=== PATIENT | male | born 1950 | race Caucasian/White ===

== ENCOUNTER 2021-04-02 06:08 | Inpatient (IN) ==
[2021-04-02 06:44] LABS: Basophils # (auto) 0.08 K/uL (0-0.2); Basophils % (auto) 0.9 %; Eosinophils # (auto) 0.49 K/uL (0-0.5); Eosinophils % (auto) 5.3 %; Hematocrit (blood only) 45.6 % (42-52); Hemoglobin 15.4 g/dL (14.0-18.0); Immature Granulocytes # (auto) 0.03 K/uL (0.00-0.02); Immature Granulocytes % (auto) 0.3 %; Lymphocytes # (auto) 2.05 K/uL (1.2-3.4); Lymphocytes % (auto) 22.2 %; Mean Corpuscular Hgb Conc 33.8 g/dL (32-36); Mean Corpuscular Volume 88.9 fL (80-100); Mean Platelet Volume 12.6 fL (7.4-10.4); Monocytes # (auto) 0.84 K/uL (0.11-0.59); Monocytes % (auto) 9.1 %; Neutrophils # (auto) 5.76 K/uL (1.4-6.5); Neutrophils % (auto) 62.2 %; Platelet Count 222 K/uL (130-400); RDW Coefficient of Variation 13.4 % (11.5-14.5); RDW Standard Deviation 44.2 fL (36.4-46.3); Red Blood Count 5.13 M/uL (4.7-6.1); White Blood Count 9.25 K/uL (4.8-10.8)
[2021-04-02] MEDS ORDERED: NITROGLYCERIN SL 0.4 MG/TAB TAB SL STA ×2 (06:46→07:23)
[2021-04-02] MEDS ORDERED: ASPIRIN CHEW 324 MG PO STA (06:46)
--- NOTE | 2021-04-02 06:47 | Emergency Department Note ---
History of Present Illness General Chief Complaint: Chest Pain Stated Complaint: CHEST PAIN,PAIN DOWN LEFT ARM Time Seen by Provider: 04/02/21 06:34 History of Present Illness Provider Complaint: chest pain Onset (ago): hour(s) 4 Duration: intermittent Onset: during rest Pain Location: substernal Pain Radiation: LUE Severity: moderate Maximum Pain Intensity: 8 Current Pain Intensity: 8 Quality: + aching and + sharp Relieved By: + nothing Exacerbated By: + nothing Context: no recent illness, no recent surgery, no recent immobilization, no recent travel, no trauma/injury or no new medications Associated symptoms: no nausea, no vomiting, no diaphoresis, no dyspnea, no syncope, no palpitations, no fever, no cough or no leg swelling Patient reports his pain began at 2:30 in the morning today. He reports over the last 3 days it is started at similar times overnight. Home Medications Medication Instructions Recorded Confirmed Type Cbd Oil 1 dose PO UD PRN 06/07/18 04/02/21 History Medical Marijuana 1 dose PO HS 06/07/18 04/02/21 History carvedilol 12.5 mg tablet 12.5 mg PO HS 06/07/18 04/02/21 History cholecalciferol (vitamin D3) 25 1,000 unit PO DAILY 06/07/18 04/02/21 History mcg (1,000 unit) tablet (Vitamin D3) gabapentin 400 mg capsule 200 mg PO HS 06/07/18 04/02/21 History multivitamin 1 tab PO 3XWK 06/07/18 04/02/21 History omega 9-mpo-bef-fish oil 1,000 mg 1 cap PO 3XWK 06/07/18 04/02/21 History (120 mg-180 mg) capsule (Fish Oil) turmeric root extract 500 mg 500 mg PO DAILY 06/07/18 04/02/21 History capsule ascorbic acid (vitamin C) 1,000 mg 1,000 mg PO DAILY 04/02/21 04/02/21 History tablet,extended release (Vitamin C ER) calcium gluconate 50 mg calcium 50 mg PO DAILY 04/02/21 04/02/21 History tablet ibuprofen 200 mg tablet (Advil) 200 mg PO Q6H PRN 04/02/21 04/02/21 History Allergies Allergy/AdvReac Type Severity Reaction Status Date / Time indomethacin Allergy Intermediate stomach Verified 04/02/21 07:36 pain NSAIDS (Non-Steroidal Allergy Intermediate STOMACH Verified 04/02/21 07:36 Anti-Inflamma PAINS Past Med/Surg History Medical History (Updated 04/02/21 @ 13:09 by Jaspreet Bansal) Asthma NO INHALER CAD (coronary artery disease) s/p 2 vessel CABG ~2012 Degenerative disc disease Diverticular disease Gout Hypertension Multiple sclerosis Osteoarthritis Right bundle branch block Surgical History History of appendectomy History of cardiac cath 6 YEARS AGO History of colonoscopy History of coronary artery bypass graft X 2 VESSLES 6 YEARS AGO [place] History of tonsillectomy History of tooth extraction Family History Father Coronary heart disease Brother Coronary heart disease Mother Cancer Social History Smoking Status: Current every day smoker Second Hand Exposure: No; Hx Alcohol Use: Yes Alcohol type: wine Hx Substance Use: Yes Substance Use Type Other:: MEDICAL MARIJUANA Preferred Language: Polish Communication Ability: Effective Industrial Electrician Required: No Beliefs That Will Affect Care: None Current Living Situation: Spouse Feels Safe at Home: Yes Assistive Devices: Cane and Glasses Review of Systems A total of 10 systems reviewed and were otherwise negative Physical Exam Vital Signs Vital Signs - 24 hr 04/02/21 06:15 04/02/21 06:32 04/02/21 07:16 Temperature 36.7 C Temperature Source Oral Pulse Rate 84 Pulse Rate [Left Finger] 78 Pulse Rate from SpO2 Sensor Respiratory Rate 18 20 Respiratory Depth Normal Blood Pressure 188/117 H 180/98 H Blood Pressure [Left Arm] 178/108 H Blood Pressure Mean 140 125 Blood Pressure Mean [Left Arm] 131 Blood Pressure Position [Left Arm] Lying Pulse Oximetry 98 98 Oxygen Delivery Method Room Air Room Air Sepsis Recent Fever Within 48 Hours No Sepsis New/Unexplained Change in Mental Status N/A Sepsis Action Taken by Nursing No Action Required 04/02/21 07:30 04/02/21 07:45 04/02/21 08:00 Temperature Temperature Source Pulse Rate 46 L 50 L 48 L Pulse Rate [Left Finger] Pulse Rate from SpO2 Sensor 50 L 50 L Respiratory Rate 12 15 16 Respiratory Depth Blood Pressure 112/75 Blood Pressure [Left Arm] Blood Pressure Mean 87 Blood Pressure Mean [Left Arm] Blood Pressure Position [Left Arm] Pulse Oximetry 96 96 96 Oxygen Delivery Method Sepsis Recent Fever Within 48 Hours Sepsis New/Unexplained Change in Mental Status Sepsis Action Taken by Nursing 04/02/21 08:15 Temperature Temperature Source Pulse Rate 52 L Pulse Rate [Left Finger] Pulse Rate from SpO2 Sensor 49 L Respiratory Rate 17 Respiratory Depth Blood Pressure 112/72 Blood Pressure [Left Arm] Blood Pressure Mean 85 Blood Pressure Mean [Left Arm] Blood Pressure Position [Left Arm] Pulse Oximetry 97 Oxygen Delivery Method Sepsis Recent Fever Within 48 Hours Sepsis New/Unexplained Change in Mental Status Sepsis Action Taken by Nursing Physical Exam GENERAL: He is oriented to person, place, and time. He appears well-developed and well-nourished. He does not appear distressed. HENT: Exam performed. - Head: Normocephalic and atraumatic. - Right Ear: External ear normal. No mastoid tenderness. - Left Ear: External ear normal. No mastoid tenderness. - Mouth/Throat: The oropharynx is clear and moist. No trismus in the jaw. No dental abscesses or uvula swelling. No oropharyngeal exudate or tonsillar abscesses. EYES: Conjunctivae and EOM are normal. Pupils are equal, round, and reactive to light. Right eye exhibits no discharge. Left eye exhibits no discharge. No scleral icterus. NECK: Normal range of motion. Neck supple. No JVD present. No spinous process tenderness present. No carotid bruit present. No rigidity. No tracheal deviation and normal range of motion present. No Brudzinski's sign and no Kernig's sign noted. CV: Normal rate, regular rhythm, normal heart sounds and intact distal pulses. There is no peripheral edema. Palpable radial pulses bue. PULM/CHEST: Effort normal and breath sounds normal. No respiratory distress. No stridor. He has no wheezes. He has no rales. - Chest Wall: He exhibits no tenderness. ABD: The abdomen is soft. Bowel sounds are normal. He has no distension. No mass is present. There is no tenderness. There is no rebound, no guarding, no Feliz's sign and no tenderness at McBurney's point. Rovsig negative. MUSC/SKEL: Normal range of motion. There is no peripheral edema, tenderness or deformity. LYMPH: No cervical adenopathy. NEURO: He is alert and oriented to person, place, and time. He has normal strength. No cranial nerve deficit or sensory deficit. Coordination and gait normal. GCS eye subscore is 4. GCS verbal subscore is 5. GCS motor subscore is 6. Cerebellar tests wnl. SKIN: Skin is warm and dry. He is not diaphoretic. PSYCH: He has a normal mood and affect. Behavior is normal. Judgment and thought content normal. Course Course 0634: The patient was evaluated in room C11. A complete history and physical exam was performed Cardiac monitoring: An order was placed for continuous cardiac monitoring. The monitor shows a rate of 80 with sinus rhythm 0735: Vital signs stable. Patient reports his chest pain improved from a 8 out of 10 to a 6 out of 10 sublingual nitro. Patient will be given repeat sublingual nitro. Labs show an elevated troponin of 3.45. I did discuss the patient's EKG, HPI, physical exam findings, and elevated troponin with Dr. El interventional cardiology to discuss if he wants to activate the Large Sheetfed Press Operator. He recommends not activating the Large Sheetfed Press Operator at this time and to treat the patient as an NSTEMI. Patient will be started on heparin and nitro drip and [facility]. [facility] to admit to Dr. Arguello Administered Medications Acetaminophen (Acetaminophen 325 Mg Tab) 650 mg PO Q4H PRN PRN Reason: Pain or Fever Stop: 05/02/21 08:29 Last Admin: 04/02/21 11:03 Dose: 650 mg Documented by: [id number] Heparin Sodium/Dextrose (Heparin Sodium/Dextrose) 25,000 units in 500 mls @ 16 mls/hr IV .Q24H [facility]; Protocol Stop: 05/02/21 07:44 Last Admin: 04/02/21 08:05 Dose: 800 units/hr, 16 mls/hr Documented by: [id number] Cosigned by: [id number] Sodium Chloride (Nss 1000ml) 1,000 mls @ 125 mls/hr IV .Q8H [facility] Stop: 05/02/21 07:29 Last Admin: 04/02/21 08:03 Dose: 125 mls/hr Documented by: [id number] Nitroglycerin/Dextrose (Nitroglycerin/D5w 100 Mcg/Ml) 250 mls @ 6 mls/hr IV .Q24H [facility]; Protocol Stop: 05/02/21 07:29 Last Admin: 04/02/21 11:01 Dose: 10 mcg/min, 6 mls/hr Documented by: [id number] Cosigned by: [id number] Morphine Sulfate (Morphine Sulfate 2 Mg/Ml [place]) 2 mg IV Q4H PRN PRN Reason: Pain Stop: 04/16/21 10:38 Last Admin: 04/02/21 11:03 Dose: 2 mg Documented by: [id number] Discontinued Medications Aspirin (Aspirin Chew 324 Mg) 324 mg PO NOW STA Stop: 04/02/21 06:47 Last Admin: 04/02/21 07:14 Dose: 324 mg Documented by: [id number] Heparin Sodium (Porcine) (Heparin Sod (Porcine) 1000 Unit/Ml) 4,000 units IV NOW ONE Stop: 04/02/21 07:46 Last Admin: 04/02/21 08:04 Dose: 4,000 units Documented by: [id number] Cosigned by: [id number] Nitroglycerin/Dextrose (Nitroglycerin/D5w 100 Mcg/Ml) 250 mls @ 3 mls/hr IV .Q24H [facility]; Protocol Stop: 05/02/21 07:29 Last Titration: 04/02/21 12:50 Dose: 0 mcg/min, 0 mls/hr Documented by: [id number] Admin: 04/02/21 08:05 Dose: 5 mcg/min, 3 mls/hr Documented by: [id number] Cosigned by: [id number] Miscellaneous (Stat Iv Infusion Titration Per Protocol) 1 ea N/A NOW STA Stop: 04/02/21 07:28 Last Admin: 04/02/21 12:41 Dose: Not Given Documented by: [id number] Nitroglycerin (Nitroglycerin Sl 0.4 Mg/Tab Tab) 0.4 mg SL NOW STA Stop: 04/02/21 06:47 Last Admin: 04/02/21 07:14 Dose: 0.4 mg Documented by: [id number] Nitroglycerin (Nitroglycerin Sl 0.4 Mg/Tab Tab) 0.4 mg SL NOW STA Stop: 04/02/21 07:24 Last Admin: 04/02/21 07:39 Dose: 0.4 mg Documented by: [id number] Medical Decision Making Laboratory Data Result diagrams: 04/02/21 06:34 04/02/21 06:34 Labs: Lab Results 04/02/21 04/02/21 04/02/21 Range/Units 06:34 06:34 07:45 WBC 9.25 (4.8-10.8) K/uL RBC 5.13 (4.7-6.1) M/uL Hgb 15.4 (14.0-18.0) g/dL Hct 45.6 (42-52) % MCV 88.9 (80-100) fL MCH 30.0 (25-34) pg MCHC 33.8 (32-36) g/dL RDW Std Deviation 44.2 (36.4-46.3) fL RDW Coeff of Alex 13.4 (11.5-14.5) % Plt Count 222 (130-400) K/uL MPV 12.6 H (7.4-10.4) fL Immature Gran % (Auto) 0.3 % Neut % (Auto) 62.2 % Lymph % (Auto) 22.2 % [place] % (Auto) 9.1 % Eos % (Auto) 5.3 % Baso % (Auto) 0.9 % Neut # (Auto) 5.76 (1.4-6.5) K/uL Lymph # (Auto) 2.05 (1.2-3.4) K/uL [place] # (Auto) 0.84 H (0.11-0.59) K/uL Eos # (Auto) 0.49 (0-0.5) K/uL Baso # (Auto) 0.08 (0-0.2) K/uL Immature Gran # (Auto) 0.03 H (0.00-0.02) K/uL Sodium 140 (136-145) mmol/L Potassium 4.1 (3.5-5.1) mmol/L Chloride 110 H (98-107) mmol/L Carbon Dioxide 29 (21-32) mmol/L Anion Gap 1.0 L (3-11) BUN 15 (7-18) mg/dl Creatinine 1.14 (0.6-1.4) mg/dl Est Cr Clr Drug Dosing 56.9 ml/min Est GFR ( Amer) 75.1 ml/min Est GFR (Non-Af Amer) 64.8 ml/min BUN/Creatinine Ratio 12.8 (10-20) Glucose 133 H (70-99) mg/dl Calcium 9.1 (8.5-10.1) mg/dl Total Bilirubin 0.6 (0.2-1) mg/dl AST 51 H (15-37) U/L ALT 27 (12-78) Alkaline Phosphatase 59 (45-117) U/L Troponin I 3.450 H* (0-0.045) ng/ml Total Protein 7.2 (6.4-8.2) gm/dl Albumin 3.8 (3.4-5.0) gm/dl Globulin 3.4 (2.5-4.0) gm/dl Albumin/Globulin Ratio 1.1 (0.9-2) Lipase 346 (73-393) U/L SARS-CoV-2, RNA, NAAT NEGATIVE (NEGATIVE) Imaging Data Chest x-ray: Radiologist's impression: Chest X-Ray 04/02/21 06:17 XR chest 1V portable HISTORY: 71 years-old Male Chest Pain acute atypical chest pain COMPARISON: Chest radiograph 01/22/2012 TECHNIQUE: Portable AP view of the chest FINDINGS: Cardiomediastinal and hilar silhouettes are within normal limits. Prior median sternotomy and probable CABG. No pneumothorax, pleural effusion, airspace consolidation or overt pulmonary edema. Subcentimeter ovoid nodular retrocardiac density may reflect a calcified granuloma. Degenerative changes of the shoulders and spine. IMPRESSION: No acute process. ACT 112: Negative or not required by law. The above report was generated using voice recognition software. It may contain grammatical, syntax or spelling errors. Electronically signed by: Zion Chavez M.D. 04/02/2021 7:22 AM ECG Data Indication: chest pain Rate (beats per minute): 79 Rhythm: normal sinus Findings: + LAFB, + RBBB and + ST depression (V3 V4 V5); no ST elevation or no prolonged QT Additional Comments: ST depressions in V3 V4 and V5 are new. MDM Narrative Vital signs stable. Patient reports his chest pain improved from a 8 out of 10 to a 6 out of 1:10 sublingual nitro. Patient will be given repeat sublingual nitro. Labs show an elevated troponin of 3.45. I did discuss the patient's EKG, HPI, physical exam findings, and elevated troponin with Dr. El interventional cardiology to discuss if he wants to activate the Large Sheetfed Press Operator. He recommends not activating the Large Sheetfed Press Operator at this time and to treat the patient as an NSTEMI. Patient will be started on heparin and nitro drip and [facility]. [facility] stated to admit to Dr. Arguello Impression & Plan NSTEMI (non-ST elevated myocardial infarction) Critical Care Time Critical Care Time: Yes Total Critical Care Time: 60 I have personally spent greater than 60 minutes of critical care time in the direct management of this patient. This includes bedside care, interpretation of diagnostic studies, and testing, discussion with consultants, patient, and family members, and other required patient management activities. This 60 min utes is in excess of all separately billable procedures. Discharge Plan Visit Data Chief Complaint: Chest Pain Stated Complaint: CHEST PAIN,PAIN DOWN LEFT ARM ED Provider: Jaspreet Bansal Discharge Problem: NSTEMI (non-ST elevated myocardial infarction) Patient Disposition: Admitted As Inpatient
[2021-04-02 07:01] LABS: Albumin Level 3.8 gm/dl (3.4-5.0); BUN Creatinine Ratio 12.8 (10-20); Calcium 9.1 mg/dl (8.5-10.1); Creatinine Clr Calc Pharmacy 56.9 ml/min; Est GFR (African American) 75.1 ml/min; Est GFR (Non-African American) 64.8 ml/min; Potassium 4.1 mmol/L (3.5-5.1)
[2021-04-02 07:09] LABS: Albumin Globulin Ratio 1.1 (0.9-2); Bilirubin,Total 0.6 mg/dl (0.2-1); Globulin 3.4 gm/dl (2.5-4.0); Total Protein 7.2 gm/dl (6.4-8.2); Troponin I 3.45 ng/ml (0-0.045)
--- NOTE | 2021-04-02 07:23 | XRay Report ---
XR chest 1V portable HISTORY: 71 years-old Male Chest Pain acute atypical chest pain COMPARISON: Chest radiograph 01/22/2012 TECHNIQUE: Portable AP view of the chest FINDINGS: Cardiomediastinal and hilar silhouettes are within normal limits. Prior median sternotomy and probabl e CABG. No pneumothorax, pleural effusion, airspace consolidation or overt pulmonary edema. Subcentim eter ovoid nodular retrocardiac density may reflect a calcified granuloma. Degenerative changes of th e shoulders and spine. IMPRESSION: No acute process. ACT 112: Negative or not required by law. The above report was generated using voice recognition software. It may contain grammatical, syntax o r spelling errors. Electronically signed by: Zion Chavez M.D. 04/02/2021 7:22 AM
[2021-04-02] MEDS ORDERED: STAT IV Infusion **Titration per Protocol STA (07:27)
[2021-04-02] MEDS ORDERED: Heparin IV Adult Wt-Based Low-Dose WITH Bolus Protocol STA (07:27)
[2021-04-02] MEDS ORDERED: NITROGLYCERIN/D5W 100MCG/ML 250 ML IV SCH ×2 (07:30→10:28)
[2021-04-02] MEDS ORDERED: HEPARIN SOD (PORCINE) 1000 UNIT/ML IV ONE ×2 (07:42→07:45)
[2021-04-02] MEDS ORDERED: HEPARIN SODIUM/DEXTROSE 25,000 UNITS/500 ML BAG IV SCH (07:45)
[2021-04-02] MEDS: SODIUM CHLORIDE 0.9% 1000ML 1,000 ML IV SCH ×2 (08:03→17:29)
[2021-04-02] MEDS ORDERED: ACETAMINOPHEN 325 MG TAB PO PRN (08:30)
--- NOTE | 2021-04-02 08:34 | History & Physical Report ---
Date of Service April 02, 2021 Assessment & Plan (1) NSTEMI (non-ST elevated myocardial infarction): Plan: Patient presents with left-sided chest pain, radiation to left arm Troponin 3.45 ST depressions in V3 V4 V5 In ED given aspirin 324 mg, sublingual nitro x2 with some improvement in chest pain started on IV heparin and IV nitro drip ED provider discussed with Dr. El, recommended medical management History of CAD, status post CABG History of chronic ischemic heart disease and hyperlipidemia, not tolerant to statin History of right bundle branch block At home usually takes Coreg For now we will continue IV heparin, and IV nitro drip Admit to PCU for close hemodynamic monitoring Trend troponin Obtain echocardiogram and discuss further with cardiology History of MS, polyneuropathy -Patient on medical marijuana, gabapentin -Resume home medications as appropriate DVT prophylaxis: Currently on IV heparin Code status: Full History of Present Illness Chief Complaint: Chest pain Primary Care Provider: Bryn Recinos, 71-year-old male, with history of CAD status post CABG, chronic ischemic heart disease, right bundle branch block, hyperlipidemia (not tolerant to statins), MS, polyneuropathy, and osteoarthritis, who presents with chest pain. Patient reports having chest pain in the middle of the night, for past 3 days. He usually wakes up around 2 or 3 AM, with left-sided chest pain that radiates to both of his arms left more than right. He reports pain to be sometimes as pressure sometimes sharp. Reports that it usually lasts quite a long time, even about 2 hours before it gets better. He also says he is able to do simple stretching exercises and at that time he is not really bothered by chest pain. He takes stairs but very slowly due to his MS. And so he does not notice much chest pain with activity. He does notice it more when he lays down. This morning pain was bothering him more than usual and therefore he decided to be evaluated in emergency room. He does not recall being short of breath, or diaphoretic, however he noticed pain to radiate to his arms and jaw, mostly left arm. He also reported headache and eye pain associated with chest pain. In the ED, troponin was found to be elevated at 3.45, and EKG significant with ST depressions in V3, V4, V5. Patient received aspirin 324 mg in the ED, as well as sublingual nitro, which helped with chest pain. ED provider contacted Dr. El, cardiology, who recommended to treat as an NSTEMI. Patient started on IV heparin and IV nitro. Allergies Allergy/AdvReac Type Severity Reaction Status Date / Time indomethacin Allergy Intermediate stomach Verified 04/02/21 07:36 pain NSAIDS (Non-Steroidal Allergy Intermediate STOMACH Verified 04/02/21 07:36 Anti-Inflamma PAINS Home Medications Medication Instructions Recorded Confirmed Type Cbd Oil 1 dose PO UD PRN 06/07/18 04/02/21 History Medical Marijuana 1 dose PO HS 06/07/18 04/02/21 History carvedilol 12.5 mg tablet 12.5 mg PO HS 06/07/18 04/02/21 History cholecalciferol (vitamin D3) 25 1,000 unit PO DAILY 06/07/18 04/02/21 History mcg (1,000 unit) tablet (Vitamin D3) gabapentin 400 mg capsule 200 mg PO HS 06/07/18 04/02/21 History multivitamin 1 tab PO 3XWK 06/07/18 04/02/21 History omega 6-nlt-hfr-fish oil 1,000 mg 1 cap PO 3XWK 06/07/18 04/02/21 History (120 mg-180 mg) capsule (Fish Oil) turmeric root extract 500 mg 500 mg PO DAILY 06/07/18 04/02/21 History capsule ascorbic acid (vitamin C) 1,000 mg 1,000 mg PO DAILY 04/02/21 04/02/21 History tablet,extended release (Vitamin C ER) calcium gluconate 50 mg calcium 50 mg PO DAILY 04/02/21 04/02/21 History tablet ibuprofen 200 mg tablet (Advil) 200 mg PO Q6H PRN 04/02/21 04/02/21 History Past Med/Surg History Medical History (Updated 04/02/21 @ 10:20 by Chris Raymond MD) Asthma NO INHALER CAD (coronary artery disease) s/p 2 vessel CABG ~2012 Degenerative disc disease Diverticular disease Gout Hypertension Multiple sclerosis Osteoarthritis Right bundle branch block Surgical History History of appendectomy History of cardiac cath 6 YEARS AGO History of colonoscopy History of coronary artery bypass graft X 2 VESSLES 6 YEARS AGO [place] History of tonsillectomy History of tooth extraction Family History (Updated 04/02/21 @ 08:43 by Chris Raymond MD) Father Coronary heart disease Brother Coronary heart disease Mother Cancer Social History Smoking Status: Current every day smoker Second Hand Exposure: No; Hx Alcohol Use: Yes Alcohol type: wine Hx Substance Use: Yes Substance Use Type Other:: MEDICAL MARIJUANA Preferred Language: German Communication Ability: Effective Senior Net Application Developer Required: No Beliefs That Will Affect Care: None Current Living Situation: Spouse Feels Safe at Home: Yes Assistive Devices: Cane and Glasses Review of Systems Constitutional: no fever and no chills Eyes: no problem reported Ear, Nose, Mouth, Throat: no problem reported Respiratory: no cough, no dyspnea and no problem reported Cardiovascular: + chest pain and + radiating jaw, neck or arm pain Gastrointestinal: no abdominal pain, no nausea and no problem reported Genitourinary: no problem reported Musculoskeletal: no problem reported (hx of MS, no new problems reported) Integumentary: no problem reported Neurologic: no problem reported Psychiatric: no problem reported Endocrine: no problem reported Hematologic / Lymphatic: no problem reported Allergy / Immunological: no problem reported Physical Exam Constitutional: WD/WN, vitals as above Eyes: PERRL, conjunctivae normal, anicteric sclerae ENMT: external ear and nose normal, oropharynx normal Neck: trachea midline, no thyromegaly Respiratory: normal respiratory effort, lungs clear to auscultation (no wheezing, rhonchi, crackles) Cardiovascular: RRR, no murmur, no edema Chest (Breasts): Chest: normal inspection of chest Gastrointestinal (Abdomen): normal bowel sounds, soft, nontender, no hepatosplenomegaly Musculoskeletal: Head/Neck/Chest: normocephalic, head atraumatic and neck supple Extremities: + abnormal strength (pt moves extremities, has brace on RLE (chronic d/t MS)) Skin: no rashes, warm and dry Neurologic: awake (Alert oriented answering questions appropriately,no facial asymmetry) Psychiatric: A+Ox3, euthymic affect Genitourinary: no CVA tenderness Lymphatic: no lymphedema Results & Data Results & Data ([facility]) Vital Signs (Past 12 Hours) Vital Signs Temp Pulse Pulse Resp BP BP Pulse Ox 04/02/21 08:00 48 L 16 96 04/02/21 07:45 50 L 15 96 04/02/21 07:30 46 L 12 112/75 96 04/02/21 07:16 180/98 H 04/02/21 06:32 78 20 178/108 H 98 04/02/21 06:15 36.7 C 84 18 188/117 H 98 Laboratory Results 04/02/21 04/02/21 04/02/21 Range/Units 07:45 06:34 06:34 WBC 9.25 (4.8-10.8) K/uL RBC 5.13 (4.7-6.1) M/uL Hgb 15.4 (14.0-18.0) g/dL Hct 45.6 (42-52) % MCV 88.9 (80-100) fL MCH 30.0 (25-34) pg MCHC 33.8 (32-36) g/dL RDW Std Deviation 44.2 (36.4-46.3) fL RDW Coeff of Alex 13.4 (11.5-14.5) % Plt Count 222 (130-400) K/uL MPV 12.6 H (7.4-10.4) fL Immature Gran % (Auto) 0.3 % Neut % (Auto) 62.2 % Lymph % (Auto) 22.2 % [place] % (Auto) 9.1 % Eos % (Auto) 5.3 % Baso % (Auto) 0.9 % Neut # (Auto) 5.76 (1.4-6.5) K/uL Lymph # (Auto) 2.05 (1.2-3.4) K/uL [place] # (Auto) 0.84 H (0.11-0.59) K/uL Eos # (Auto) 0.49 (0-0.5) K/uL Baso # (Auto) 0.08 (0-0.2) K/uL Immature Gran # (Auto) 0.03 H (0.00-0.02) K/uL Sodium 140 (136-145) mmol/L Potassium 4.1 (3.5-5.1) mmol/L Chloride 110 H (98-107) mmol/L Carbon Dioxide 29 (21-32) mmol/L Anion Gap 1.0 L (3-11) BUN 15 (7-18) mg/dl Creatinine 1.14 (0.6-1.4) mg/dl Est Cr Clr Drug Dosing 56.9 ml/min Est GFR ( Amer) 75.1 ml/min Est GFR (Non-Af Amer) 64.8 ml/min BUN/Creatinine Ratio 12.8 (10-20) Glucose 133 H (70-99) mg/dl Calcium 9.1 (8.5-10.1) mg/dl Total Bilirubin 0.6 (0.2-1) mg/dl AST 51 H (15-37) U/L ALT 27 (12-78) Alkaline Phosphatase 59 (45-117) U/L Troponin I 3.450 H* (0-0.045) ng/ml Total Protein 7.2 (6.4-8.2) gm/dl Albumin 3.8 (3.4-5.0) gm/dl Globulin 3.4 (2.5-4.0) gm/dl Albumin/Globulin Ratio 1.1 (0.9-2) Lipase 346 (73-393) U/L SARS-CoV-2, RNA, NAAT NEGATIVE (NEGATIVE) Code Status & VTE Plan VTE Prophylaxis Plan VTE Prophylaxis will be ordered: Yes
[2021-04-02] MEDS ORDERED: MoRPHine SULFATE 2 MG/ML CARP IV PRN (10:39)
--- NOTE | 2021-04-02 11:14 | Cardiology Consultation ---
Date of Consultation April 02, 2021 Assessment & Plan (1) Multiple sclerosis: (2) Hx of CABG: (3) NSTEMI (non-ST elevated myocardial infarction): As previously mentioned, the patient has not been very compliant with medical follow-up or medications. Upon presentation, he was off of all his cardiac meds. His chest discomfort does not sound completely new. He has had previous atypical sharp chest pain in the past which seems to have gotten worse here over the past few days. It is also atypical and is that is not related to activity. It seems to wake him from sleep when he is lying flat. Not associated with shortness of breath. I would continue to monitor him. Continue to obtain a series of cardiac markers. He had an ultrasound completed which I will review. Currently I would continue the IV nitroglycerin and heparin. He may need additional analgesia such as Tylenol or as needed morphine. If he has not been started on a PPI, then I will start 1. History of Present Illness History of Present Illness This is a 71-year-old male patient who has not been very compliant with follow- up visits for medications. He was last seen in our practice in 2019 for preoperative clearance regarding inguinal hernia repair. Prior to that he had not been seen since 2015. During his 2019 preoperative evaluation he described atypical sharp chest pain. Therefore, he underwent a dobutamine stress echocard iogram that was negative. He has an intolerance to statin medications as well as aspirin. During his last visit in 2019 it is mentioned that he was not on any of his medications. He does have a history of coronary artery disease and in 2012 underwent single-vessel coronary artery bypass at [facility]. It is uncertain as to whether he received an arterial or vein graft. The patient also has a history of multiple sclerosis for which he uses medical marijuana. The patient was in his usual state of health until approximately 3 days ago. As mentioned above he has a history of atypical chest pain which he began to have a little more frequent. Typically his chest pain occurs at night when he lays flat. It can also occur but to less extent during the day while he is exercising. Its not associated with shortness of breath or dyspnea on exertion. Is not increased with deep breathing. Over the past 3 days he describes it as being severe especially at night where it wakes him from sleep. He decided to come to the emergency department and after admission here he is noted to have an abnormal EKG with a right bundle branch block which is unchanged from prior studies. He also had an elevation in his cardiac markers specifically his troponin was 3.4. He is currently on a heparin and nitroglycerin drip. He describes some mild chest discomfort. He appears to be in no acute distress. Allergies Allergy/AdvReac Type Severity Reaction Status Date / Time indomethacin Allergy Intermediate stomach Verified 04/02/21 07:36 pain NSAIDS (Non-Steroidal Allergy Intermediate STOMACH Verified 04/02/21 07:36 Anti-Inflamma PAINS Home Medications Medication Instructions Recorded Confirmed Type Cbd Oil 1 dose PO UD PRN 06/07/18 04/02/21 History Medical Marijuana 1 dose PO HS 06/07/18 04/02/21 History carvedilol 12.5 mg tablet 12.5 mg PO HS 06/07/18 04/02/21 History cholecalciferol (vitamin D3) 25 1,000 unit PO DAILY 06/07/18 04/02/21 History mcg (1,000 unit) tablet (Vitamin D3) gabapentin 400 mg capsule 200 mg PO HS 06/07/18 04/02/21 History multivitamin 1 tab PO 3XWK 06/07/18 04/02/21 History omega 6-kxr-ass-fish oil 1,000 mg 1 cap PO 3XWK 06/07/18 04/02/21 History (120 mg-180 mg) capsule (Fish Oil) turmeric root extract 500 mg 500 mg PO DAILY 06/07/18 04/02/21 History capsule ascorbic acid (vitamin C) 1,000 mg 1,000 mg PO DAILY 04/02/21 04/02/21 History tablet,extended release (Vitamin C ER) calcium gluconate 50 mg calcium 50 mg PO DAILY 04/02/21 04/02/21 History tablet ibuprofen 200 mg tablet (Advil) 200 mg PO Q6H PRN 04/02/21 04/02/21 History aspirin 81 mg tablet,delayed 81 mg PO QAM #30 tab 04/03/21 Rx release clopidogrel 75 mg tablet 75 mg PO QAM #30 tab 04/03/21 Rx Patient History Medical History (Updated 04/02/21 @ 13:09 by Jaspreet Bansal) Asthma NO INHALER CAD (coronary artery disease) s/p 2 vessel CABG ~2012 Degenerative disc disease Diverticular disease Gout Hypertension Multiple sclerosis Osteoarthritis Right bundle branch block Surgical History History of appendectomy History of cardiac cath 6 YEARS AGO History of colonoscopy History of coronary artery bypass [facility] of tonsillectomy History of tooth extraction Family History Father Coronary heart disease Brother Coronary heart disease Mother Cancer Social History Smoking Status: Current every day smoker Second Hand Exposure: Yes; Do You Dip or Chew Tobacco: No; Tobacco Cessation Education Requested by Patient: No Hx Alcohol Use: No Hx Substance Use: Yes Last Used Substance: Days (ago) Last Used Substance Other:: yesterday, uses tincture and vaping Substance Use Type Other:: MEDICAL MARIJUANA Preferred Language: Nepali Communication Ability: Effective Gang 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 All other 10 point review of systems are negative. Physical Exam Physical Exam: General: no acute distress and stated age Head: normocephalic, no masses, lesions, tenderness or abnormalities Eyes: conjunctiva are pink and non-injected, sclera clear Neck: supple, no adenopathy, no bruits, normal jugular venous pulse, no hepatojugular reflux Chest: normal shape and normal respiratory effort Lungs: clear to auscultation and percussion Cardiac Exam: - regular rate & rhythm, no murmurs gallops or rubs - normal S1, normal S2 Pulses: 2(+) throughout Abdomen: abdomen soft, non-tender, no abnormal masses and no hepatosplenomegaly Musculoskeletal: no gait disturbance, no joint inflammation, no deforming arthritis Extremities: no edema and no cyanosis Neuro: grossly normal exam Results & Data ([facility]) Vital Signs (Past 12 Hours) Vital Signs Temp Pulse Pulse Resp BP BP Pulse Ox 04/02/21 09:15 59 L 14 128/68 97 04/02/21 09:00 53 L 16 108/72 96 04/02/21 08:45 48 L 14 111/67 97 04/02/21 08:30 47 L 21 123/74 97 04/02/21 08:15 52 L 17 112/72 97 04/02/21 08:00 48 L 16 96 04/02/21 07:45 50 L 15 96 04/02/21 07:30 46 L 12 112/75 96 04/02/21 07:16 180/98 H 04/02/21 06:32 78 20 178/108 H 98 04/02/21 06:15 36.7 C 84 18 188/117 H 98 Laboratory Results Laboratory Results - last 24 hr 04/02/21 04/02/21 04/02/21 06:34 06:34 07:45 WBC 9.25 RBC 5.13 Hgb 15.4 Hct 45.6 MCV 88.9 MCH 30.0 MCHC 33.8 RDW Std Deviation 44.2 RDW Coeff of Alex 13.4 Plt Count 222 MPV 12.6 H Immature Gran % (Auto) 0.3 Neut % (Auto) 62.2 Lymph % (Auto) 22.2 [place] % (Auto) 9.1 Eos % (Auto) 5.3 Baso % (Auto) 0.9 Neut # (Auto) 5.76 Lymph # (Auto) 2.05 [place] # (Auto) 0.84 H Eos # (Auto) 0.49 Baso # (Auto) 0.08 Immature Gran # (Auto) 0.03 H Sodium 140 Potassium 4.1 Chloride 110 H Carbon Dioxide 29 Anion Gap 1.0 L BUN 15 Creatinine 1.14 Est Cr Clr Drug Dosing 56.9 Est GFR ( Amer) 75.1 Est GFR (Non-Af Amer) 64.8 BUN/Creatinine Ratio 12.8 Glucose 133 H Calcium 9.1 Total Bilirubin 0.6 AST 51 H ALT 27 Alkaline Phosphatase 59 Troponin I 3.450 H* Total Protein 7.2 Albumin 3.8 Globulin 3.4 Albumin/Globulin Ratio 1.1 Lipase 346 SARS-CoV-2, RNA, NAAT NEGATIVE Medications Administered Current Inpatient Medications Acetaminophen (Acetaminophen 325 Mg Tab) 650 mg PO Q4H PRN PRN Reason: Pain or Fever Stop: 05/02/21 08:29 Last Admin: 04/02/21 11:03 Dose: 650 mg Documented by: Heparin Sodium/Dextrose (Heparin Sodium/Dextrose) 25,000 units in 500 mls @ 16 mls/hr IV .Q24H [facility]; Protocol Stop: 05/02/21 07:44 Last Admin: 04/02/21 08:05 Dose: 800 units/hr, 16 mls/hr Documented by: Sodium Chloride (Nss 1000ml) 1,000 mls @ 125 mls/hr IV .Q8H [facility] Stop: 05/02/21 07:29 Last Admin: 04/02/21 08:03 Dose: 125 mls/hr Documented by: Nitroglycerin/Dextrose (Nitroglycerin/D5w 100 Mcg/Ml) 250 mls @ 6 mls/hr IV .Q24H [facility]; Protocol Stop: 05/02/21 07:29 Last Admin: 04/02/21 11:01 Dose: 10 mcg/min, 6 mls/hr Documented by: Morphine Sulfate (Morphine Sulfate 2 Mg/Ml Carp) 2 mg IV Q4H PRN PRN Reason: Pain Stop: 04/16/21 10:38 Last Admin: 04/02/21 11:03 Dose: 2 mg Documented by:
[2021-04-02] MEDS ORDERED: PANTOprazole 40 MG TAB PO STA (12:00)
[2021-04-02] MEDS ORDERED: FAMOTIDINE 20MG/5ML IV PUSH IV STA (12:06)
[2021-04-02] MEDS ORDERED: oxyCODONE HCL IR 5 MG TAB (IMMEDIATE RELEASE) PO PRN (12:09)
[2021-04-02] MEDS ORDERED: FAMOTIDINE 20 MG in SYRINGE 3 ML IV ONE (13:30)
[2021-04-02 14:32] LABS: Partial Thromboplastin Ratio 1.8
[2021-04-02 14:33] LABS: Partial Thromboplastin Time 47.8 Seconds (21.0-31.0)
[2021-04-02] MEDS ORDERED: fentaNYL citrate 100 MCG/2 ML VIAL ONE (15:00)
[2021-04-02] MEDS ORDERED: HEPARIN (PORCINE) 1000 UNIT/ML 10 ML (CATH LAB USE ONLY) ONE (15:00)
[2021-04-02] MEDS ORDERED: niCARdipine HCL INJ 2.5 MG/ML 10 ML AMP ONE (15:00)
[2021-04-02] MEDS ORDERED: MIDAZOLAM HCL 1 MG/ML 2ML VIAL ONE (15:00)
[2021-04-02] MEDS ORDERED: NITROGLYCERIN/D5W 100MCG/ML 20ML SYR ONE (15:01)
--- NOTE | 2021-04-02 15:34 | Pre Anesthesia Assessment ---
Date of Service April 02, 2021 Pre Sedation Assessment Vital Signs Temp Pulse Pulse Pulse Resp BP BP 04/02/21 14:31 97.9 F 66 17 04/02/21 11:43 98.1 F 72 18 04/02/21 09:15 59 L 14 128/68 04/02/21 09:00 53 L 16 108/72 04/02/21 08:45 48 L 14 111/67 04/02/21 08:30 47 L 21 123/74 04/02/21 08:15 52 L 17 112/72 04/02/21 08:00 48 L 16 04/02/21 07:45 50 L 15 04/02/21 07:30 46 L 12 112/75 04/02/21 07:16 180/98 H 04/02/21 06:32 78 20 178/108 H 04/02/21 06:15 98.1 F 84 18 188/117 H BP Pulse Ox 04/02/21 14:31 111/67 95 04/02/21 11:43 128/72 04/02/21 09:15 97 04/02/21 09:00 96 04/02/21 08:45 97 04/02/21 08:30 97 04/02/21 08:15 97 04/02/21 08:00 96 04/02/21 07:45 96 04/02/21 07:30 96 04/02/21 07:16 04/02/21 06:32 98 04/02/21 06:15 98 Cardiovascular RRR, no murmur, no edema Respiratory normal respiratory effort, lungs clear to auscultation Pre-Sedation Airway Assessment Smoking Status: Current every day smoker Hx Sleep Apnea: No Hx Difficult Intubation: No Short, Thick Neck: No Thyromental Distance: > or= 3.5 Finger Breadths Oral Cavity: + WNL Mallampati Class: III ASA: ASA3 Procedure Planning Contraindications for Sedation: none Current Medications Reviewed: Yes Notes The planned sedation has been discussed with the patient. Informed Consent was obtained. I have identified the patient, determined the appropriateness of sedation and have assessed the patient immediately prior to the procedure. All medicine(s) and interventions are by my order.
[2021-04-02] MEDS ORDERED: ATROPINE SULFATE 0.1 MG/ML 10ML SYR IV ONE (16:11)
[2021-04-02] MEDS ORDERED: CLOPIDOGREL BISULFATE 300 MG TAB ONE (16:38)
--- NOTE | 2021-04-02 16:52 | Post Anesthesia Assessment ---
Date of Service April 02, 2021 Post Sedation Assessment Vital Signs Temp Pulse Pulse Pulse Resp BP BP 04/02/21 14:31 97.9 F 66 17 04/02/21 11:43 98.1 F 72 18 04/02/21 09:15 59 L 14 128/68 04/02/21 09:00 53 L 16 108/72 04/02/21 08:45 48 L 14 111/67 04/02/21 08:30 47 L 21 123/74 04/02/21 08:15 52 L 17 112/72 04/02/21 08:00 48 L 16 04/02/21 07:45 50 L 15 04/02/21 07:30 46 L 12 112/75 04/02/21 07:16 180/98 H 04/02/21 06:32 78 20 178/108 H 04/02/21 06:15 98.1 F 84 18 188/117 H BP Pulse Ox 04/02/21 14:31 111/67 95 04/02/21 11:43 128/72 04/02/21 09:15 97 04/02/21 09:00 96 04/02/21 08:45 97 04/02/21 08:30 97 04/02/21 08:15 97 04/02/21 08:00 96 04/02/21 07:45 96 04/02/21 07:30 96 04/02/21 07:16 04/02/21 06:32 98 04/02/21 06:15 98 Recovery Score Activity: Moves 4 extremities Respiration: Deep Breath/Cough Circulation: +/-20% PreAnes Value Consciousness: Fully Awake Oxygen Saturation: O2 needed for >90% Discharge Sedation Level of Care: Fast Track Phase II Post Sedation Plan On clinical assessment, the patient appears to have tolerated the sedation without complications. Patient is recovering as anticipated. Patient will continue to be monitored by nursing and may be discharged when sedation discharge criteria are met per below protocol. Upon Completions of procedure up to 15 minutes continue every 5 minute vital signs and the P.A.R. score; then discharge to a Phase I or Fast Track to Phase II per the following guidelines: * Discharge Patient to appropriate Phase II area if PAR is 8 or greater or return to pre- procedure baseline. The post - procedure orders will be as directed. * If PAR score is less than 8 or not return to pre-procedure baseline then patient will follow Phase I monitoring till PAR is reached for Phase II. The Phase I may be done in procedure room or may call to secure a Phase I area. * If naloxone or flumazenil are used for reversal, hold in Phase I for continued monitoring from when last reversal dose was given for a minimum of 60 minutes or longer pending the nurse and/or physician discretion of patient condition before discharge to Phase II. Please call the Sedation Physician to re-evaluate and complete post-note for discharge to Phase II area. Do NOT discharge from procedure sedation or Phase 1 until post- sedation evaluation note is complete by procedure /sedation MD Sedation Discharge Instructions to be given to the patient at discharge to home.
--- NOTE | 2021-04-02 16:54 | Cardiac Catheterization ---
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 Status Clinical evaluation leading to the procedure CAD Presenation: Non STEMI Anginal Classification: CCS IV Heart Failure: No Cardiogenic Shock within 24 Hours: No Cardiac Arrest within 24 Hours: No Imaging Studies Past 6 Months: Yes Stress Studies Past 6 Months: No Diagnostic Physicians Name: Obed El MD Status: Urgent Closure Device Percutaneous Entry Location: Radial Closure Device: Radial Band Recommendations: PCI without planned CABG PCI Indication: PCI for high risk Non-RAVINDER Lesion Segment Name: Distal RCA Culprit Artery: Yes Stenosis Prior to Rx (%): 100 Chronic Total Occlusion: No IVUS: No FFR: No Pre-Procedure DONNA Flow: 0 Previously Treated Lesion: No Lesion Complexity: Non-High/Non-C Lesion Length (mm): 15 Thrombus Present: Yes Bifurcation Lesion: Yes Guidewire Across Lesion: Stenosis Post-Procedure (%): 0 Post-Procedure DONNA Flow: 3 Devices(s) Deployed: Yes Yes Intraprocedure Events Significant Disection: No Perforation: No Cardiac Cath Procedure Full Procedure Date April 02, 2021 Pre-Procedure Diagnosis Pre-Procedure Diagnosis: Non STEMI AUC Score AUC Score: 8 Post-Procedure Diagnosis Post-Procedure Diagnosis: Severe CAD, Successful PCI and Normal Intracardiac Pressures Procedure(s) Performed Procedure(s) Performed: Coronary Angiography, Left Heart Cath, Drug Eluting Stent and Bypass Graft Angiography Upholsterer Outside Obed El MD Chainstitch Elastic Attacher(s) Alex Estimated Blood Loss Estimated Blood Loss: 15 Medication(s) Medication(s): Clopidogrel, Fentanyl, Heparin, Lidocaine 1%, Nicardipine, Nitroglycerin and Versed Summary of Findings Indication: High risk NSTEMI. History of coronary artery disease post single- vessel CABG with SANTILLAN to LAD. Access: 6 Fr left radial artery Catheters: Diagnostic JR4, JL 3.5, EBU 3.5 guide Findings: LM -large caliber, luminal irregularities LAD -medium caliber, diffuse mid segment disease up to 70% after takeoff of D1, competitive flow in latemid LAD. Medium D1 without significant disease. D2 with 100% proximal chronic occlusion. Circumflex -large caliber, ectatic proximally, 30% mid segment disease, acute 100% occlusion in early distal segment just after takeoff of D2. RCA -dominant, large caliber, 40% proximal to mid stenosis. Medium caliber PDA, RPL without significant disease. SANTILLAN to LADwidely patent. Distal LAD without significant disease, extends to apex retrofilled occluded D2 via epicardial collaterals. LVEDP -9 -- PCI -- Antithrombotic therapy: Heparin, clopidogrel Procedure: Left main cannulated with EBU 3.5 guide With the aid of a telescope support catheter, and 2.0 pilot 50 wire passed eventually able to cross occlusion into distal circumflex/LPL Distal circumflex lesion predilated with 2.0 compliant balloon Attempted to wire into OM 3 but wire repeatedly into subintimal space Dilated distal circumflex lesion stented with 3.0 x 18 mm [place] drug-eluting stent Stent post-dilated with 3.5 noncompliant balloon IC vasodilators administered for spasm Post procedure DONNA 3 flow, stent well expanded with minimal residual stenosis and no edge complications. Jailed OM [address]. [address] changes resolved, no residual chest pain. Arterial Closure: TR band Summary: 1. Acute 100% distal circumflex occlusion 2. Chronic [place] vessel coronary artery disease -70% diffuse mid LAD. 100% proximal D2 chronic total occlusion 40% earlymid RCA 3. Widely patent SANTILLAN to LAD. Distal LAD after anastomosis provides left to left collaterals to D2. 4. Normal intracardiac filling pressure. 5. Successful PCI of distal circumflex with single drug-eluting stent (3.0 x 18 mm [place]; postdilated with 3.5 NC). 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 Any exceptions are noted below. [facility] Card Cath Procedure Codes Cardiac Catheterization Procedure 1: Cardiovascular Cath Procedures: 96368 Coronaries and LHC (+/-LV) Moderate Sedation Procedure 1: Sedation/Anesthesia: 28718 Mod Sedation by the same physician;Init15 Min Child Age 5 & Up Procedure 2: Sedation/Anesthesia: 82880 Mod Sedation by the same physician; Ea [id number] Minutes Stenting Procedure 1: Cardiovascular Stent Procedures: 39866 Perc transluminal revascularization of acute sub/total occl, aMI PG Care Time/CCT Total # of Minutes Spent Total Time Spent with Patient: Total time spent is greater than 50% in coordination of care (as documented) at patient's floor/unit and/or counseling patient:
[2021-04-02] MEDS: NITROGLYCERIN 0.1 MG/HR PATCH TD SCH (17:30)
[2021-04-02] MEDS: ASPIRIN 81 MG ECTAB PO SCH (18:42)
--- NOTE | 2021-04-02 21:15 | Electrocardiogram Report ---
Test Reason : Blood Pressure : / mmHG Vent. Rate : 079 BPM Atrial Rate : 079 BPM P-R Int : 192 ms QRS Dur : 134 ms QT Int : 392 ms P-R-T Axes : 079 -89 090 degrees QTc Int : 449 ms Normal sinus rhythm Possible Left atrial enlargement Right bundle branch block Left anterior fascicular block Bifascicular block Abnormal ECG When compared with ECG of 23-JAN-2012 12:18, ST now depressed in Anterior leads T wave inversion now evident in Anterior leads Confirmed by Terrance Aldridge ([id number]) on 04/02/2021 9:14:40 PM Referred By: REFERRED SELF Confirmed By:Terrance Aldridge
--- NOTE | 2021-04-02 21:47 | Electrocardiogram Report ---
Test Reason : Blood Pressure : / mmHG Vent. Rate : 060 BPM Atrial Rate : 060 BPM P-R Int : 184 ms QRS Dur : 132 ms QT Int : 420 ms P-R-T Axes : 080 -87 105 degrees QTc Int : 420 ms Normal sinus rhythm with sinus arrhythmia Right bundle branch block Left anterior fascicular block Bifascicular block Abnormal ECG When compared with ECG of 02-APR-2021 06:12, (unconfirmed) ST less depressed in Anterior leads Confirmed by Terrance Aldridge ([id number]) on 04/02/2021 9:47:45 PM Referred By: REFERRED SELF Confirmed By:Terrance Aldridge
[2021-04-03] MEDS: SODIUM CHLORIDE 0.9% 1000ML 1,000 ML IV SCH ×2 (01:01→11:36)
--- NOTE | 2021-04-03 04:20 | Hospitalist Progress Note ---
Date of Service April 03, 2021 Assessment & Plan (1) NSTEMI (non-ST elevated myocardial infarction): Plan: History of CAD, status post CABG History of chronic ischemic heart disease and hyperlipidemia, not tolerant to statin History of right bundle branch block Patient presents with left-sided chest pain, radiation to left arm Troponin 3.45 ST depressions in anterior leads, RBBB In ED given aspirin 324 mg, sublingual nitro x2 with some improvement in chest pain started on IV heparin and IV nitro drip ED provider discussed with Dr. El, initially recommended medical management Echo obtained - study was technically limited. LV is normal in size. There is moderate to severe inferior wall hypokinesis. EF 50 to 55%. RV systolic function is normal. LA size is normal. RA size is normal. There is moderate mitral regurg. Cardiology consulted Second troponin elevated at 9, pt w/ persistent chest pain 10 despite being on IV nitro and IV heparin repeat EKG obtained, cardiology notified and heart alert called Pt is now s/p PCI of distal circumflex (w/ Dr. El) Summary: 1. Acute 100% distal circumflex occlusion 2. Chronic tribal vessel coronary artery disease -70% diffuse mid LAD. 100% proximal D2 chronic total occlusion 40% earlymid RCA 3. Widely patent SANTILLAN to LAD. Distal LAD after anastomosis provides left to left collaterals to D2. 4. Normal intracardiac filling pressure. 5. Successful PCI of distal circumflex with single drug-eluting stent (3.0 x 18 mm Delroy; postdilated with 3.5 NC). Recommendations: To PCU for continued monitoring Loaded with clopidogrel 600 mg in [employer] Continue dual-antiplatelet therapy for at least 1 year Consult cardiac Rehab At home pt usually takes Coreg History of MS, polyneuropathy -Patient on medical marijuana, gabapentin -Resume home medications as appropriate DVT prophylaxis: Currently on IV heparin Code status: Full Admission and Anticipated Discharge Date Admission Date: April 02, 2021 Subjective Pt seen in follow up of NSTEMI S/p cardiac cath yesterday Called by patient's RN, that patient wants to be discharged, signing out AMA Discussed with the patient, he says that he feels well, he no longer has chest pain, and his is supposed to pick him up later today He says that he understands he needs to take aspirin and Plavix for at least 6 months Had discussion about follow-ups with cardiology and primary care doctor office, patient understands he needs to follow-up and get his prescriptions from them after discharge, as I will be sending prescriptions only for 1 month He denies any chest pain, shortness of breath, headache, dizziness, lightheadedness Says he was ambulating to bathroom without difficulty Discussed with cardiology, would prefer to observe him longer, and ideally adju st his medications further before discharge There is also concern, given his prior noncompliance/not following up with healthcare providers Discussed again with the patient, and patient agreed to stay in the hospital Review of Systems Review of Systems: All systems reviewed & are unremarkable except as noted in Subjective Physical Exam Physical Exam: Constitutional:L WD/WN, vitals as a monico Eyes: PERRL, EOMI, conju nctivae normal, an icteric sclerae ENMT: external ear and n ose normal, oropha rynx normal Neck: supple Respiratory: normal respiratory effort, lungs birgit ar to auscultation (no wheezing, rho nchi, crackles) Cardiovascular:L RRR, no murmur, no edema BChest (Breasts): Chest: normal insp ection of chest Gastrointestinal ( Abdomen): normal bowel sound s, soft, nontender ,nondistended Musculoskeletal: Head/Neck/Chest: n ormocephalic, head atraumatic and ne ck supple Extremi ties: pt moves ext remities,uses brac e on RLE (chronic d/t MS)) Skin: no rashes, warm an d dry Neurologic: awake and Alert o riented answering questions appropri ately,no facial as ymmetry, moves ext remities Psychiatric: A+Ox3, euthymic af fect Genitourinary: no CVA tenderness Lymphatic: no lymphedema Results & Data Results & Data ([facility]) Vital Signs (Past 12 Hours) Vital Signs Temp Pulse Pulse Pulse Resp BP Pulse Ox 04/02/21 23:12 74 04/02/21 21:53 36.6 C 76 18 130/74 95 04/02/21 20:55 36.8 C 70 17 122/75 95 04/02/21 20:00 36.7 C 72 17 145/78 H 96 04/02/21 19:19 36.7 C 69 17 122/77 96 04/02/21 18:40 60 18 131/81 95 04/02/21 18:10 66 18 135/80 96 04/02/21 17:40 60 16 135/77 96 04/02/21 17:25 128/66 04/02/21 17:10 66 18 111/67 95 04/02/21 16:55 36.7 C 55 L 16 128/72 96 Laboratory Results 04/03/21 04/03/21 04/02/21 Range/Units 06:22 06:22 18:09 WBC 10.79 (4.8-10.8) K/uL RBC 4.45 L (4.7-6.1) M/uL Hgb 13.1 L (14.0-18.0) g/dL Hct 39.2 L (42-52) % MCV 88.1 (80-100) fL MCH 29.4 (25-34) pg MCHC 33.4 (32-36) g/dL RDW Std Deviation 43.0 (36.4-46.3) fL RDW Coeff of Alex 13.3 (11.5-14.5) % Plt Count 178 (130-400) K/uL MPV 13.2 H (7.4-10.4) fL APTT (21.0-31.0) Seconds PTT Ratio Activ Coag Time Kaolin (94-140) SECONDS Sodium 140 (136-145) mmol/L Potassium 3.8 (3.5-5.1) mmol/L Chloride 111 H (98-107) mmol/L Carbon Dioxide 24 (21-32) mmol/L Anion Gap 5.0 (3-11) BUN 12 (7-18) mg/dl Creatinine 0.84 D (0.6-1.4) mg/dl Est Cr Clr Drug Dosing 78.2 ml/min Est GFR ( Amer) 102.8 ml/min Est GFR (Non-Af Amer) 88.7 ml/min BUN/Creatinine Ratio 14.7 (10-20) Glucose 104 H (70-99) mg/dl Calcium 8.6 (8.5-10.1) mg/dl Phosphorus 3.0 (2.5-4.9) mg/dl Magnesium 2.0 (1.8-2.4) mg/dl Troponin I 50.400 H* 80.500 H* (0-0.045) ng/ml 01/01/22 01/01/22 01/01/22 Range/Units 16:13 13:55 13:20 WBC (4.8-10.8) K/uL RBC (4.7-6.1) M/uL Hgb (14.0-18.0) g/dL Hct (42-52) % MCV (80-100) fL MCH (25-34) pg MCHC (32-36) g/dL RDW Std Deviation (36.4-46.3) fL RDW Coeff of Alex (11.5-14.5) % Plt Count (130-400) K/uL MPV (7.4-10.4) fL APTT 47.8 H* (21.0-31.0) Seconds PTT Ratio 1.8 Activ Coag Time Kaolin 273 H (94-140) SECONDS Sodium (136-145) mmol/L Potassium (3.5-5.1) mmol/L Chloride (98-107) mmol/L Carbon Dioxide (21-32) mmol/L Anion Gap (3-11) BUN (7-18) mg/dl Creatinine (0.6-1.4) mg/dl Est Cr Clr Drug Dosing ml/min Est GFR ( Amer) ml/min Est GFR (Non-Af Amer) ml/min BUN/Creatinine Ratio (10-20) Glucose (70-99) mg/dl Calcium (8.5-10.1) mg/dl Phosphorus (2.5-4.9) mg/dl Magnesium (1.8-2.4) mg/dl Troponin I 9.170 H* (0-0.045) ng/ml Medications Administered Current Inpatient Medications Acetaminophen (Acetaminophen 325 Mg Tab) 650 mg PO Q4H PRN PRN Reason: Pain or Fever Stop: 05/02/21 08:29 Last Admin: 04/02/21 11:03 Dose: 650 mg Documented by: Aspirin (Aspirin 81 Mg Ectab) [address] [facility] Stop: 05/02/21 16:59 Last Admin: 04/02/21 18:42 Dose: 81 mg Documented by: Clopidogrel Bisulfate (Clopidogrel Bisulfate 75 Mg Tab) [address] [facility] Stop: 05/03/21 08:59 Sodium Chloride (Nss 1000ml) 1,000 mls @ 125 mls/hr IV .Q8H [facility] Stop: 05/02/21 07:29 Last Admin: 04/03/21 01:01 Dose: 125 mls/hr Documented by: Pantoprazole Sodium 40 mg/ (Syringe) 10 mls @ 5 mls/min IV DAILY@1100 [facility] Stop: 05/03/21 10:59 Miscellaneous (Remove Nitro-Dur Patch) 1 ea N/A DAILY@2100 [facility] Stop: 05/02/21 12:59 Last Admin: 04/02/21 21:00 Dose: Not Given Documented by: Morphine Sulfate (Morphine Sulfate 2 Mg/Ml Carp) 2 mg IV Q4H PRN PRN Reason: Pain Stop: 04/16/21 10:38 Last Admin: 04/02/21 11:03 Dose: 2 mg Documented by: Nitroglycerin (Nitroglycerin 0.1 Mg/Hr Patch) 0.1 patch TD QAM [facility] Stop: 05/02/21 12:14 Last Admin: 04/02/21 17:30 Dose: 0.1 patch Documented by: Oxycodone HCl (Oxycodone Hcl Ir 5 Mg Tab (Immediate Release)) 5 mg PO Q4H PRN PRN Reason: Pain Stop: 04/16/21 12:08
[2021-04-03 06:58] LABS: Hematocrit (blood only) 39.2 % (42-52); Hemoglobin 13.1 g/dL (14.0-18.0); Mean Corpuscular Hemoglobin 29.4 pg (25-34); Mean Corpuscular Hgb Conc 33.4 g/dL (32-36); Mean Corpuscular Volume 88.1 fL (80-100); Mean Platelet Volume 13.2 fL (7.4-10.4); Platelet Count 178 K/uL (130-400); RDW Coefficient of Variation 13.3 % (11.5-14.5); Red Blood Count 4.45 M/uL (4.7-6.1); White Blood Count 10.79 K/uL (4.8-10.8)
[2021-04-03 07:29] LABS: BUN Creatinine Ratio 14.7 (10-20); Calcium 8.6 mg/dl (8.5-10.1); Creatinine Clr Calc Pharmacy 78.2 ml/min; Est GFR (African American) 102.8 ml/min; Est GFR (Non-African American) 88.7 ml/min; Potassium 3.8 mmol/L (3.5-5.1)
[2021-04-03 08:01] LABS: Troponin I 50.4 ng/ml (0-0.045)
[2021-04-03] MEDS: NITROGLYCERIN 0.1 MG/HR PATCH TD SCH (08:03)
[2021-04-03] MEDS: ASPIRIN 81 MG ECTAB PO SCH (08:04)
[2021-04-03] MEDS ORDERED: PANTOprazole 40 MG TAB PO SCH (09:00)
[2021-04-03] MEDS ORDERED: CLOPIDOGREL BISULFATE 75 MG TAB PO SCH (09:00)
[2021-04-03] MEDS ORDERED: PANTOprazole 40 MG in SYRINGE 0 ML IV SCH (11:00)
[2021-04-03] MEDS ORDERED: carvediloL 12.5 MG TAB PO SCH (11:30)
--- NOTE | 2021-04-03 11:50 | Cardiology Progress Note ---
Date of Service April 03, 2021 Assessment & Plan (1) Multiple sclerosis: (2) Hx of CABG: (3) NSTEMI (non-ST elevated myocardial infarction): Plan: As mentioned, the patient is very demanding and wants to be discharged home. I would discharge him on carvedilol, Plavix, aspirin. I discontinued his nitro patch. Previously he has not been compliant with follow-up and medications. I had a serious discussion with him and indicated to him the need to continue the aspirin and Plavix for preferably a year before they are stopped. I also indicated to him the need to comply with other medications as well as follow-up with us. In the past he has not tolerated statin medication and I indicated to him that we have other medications we can try as an outpatient. I have asked him to have follow-up with us in the next 2 to 3 weeks. Admission and Anticipated Discharge Date Admission Date: April 02, 2021 Subjective The patient is very demanding and wants to be discharged home. He has not had any chest pain since yesterday. Review of Systems Review of Systems: Review of Systems: See HPI for pertinent positives. All other 10 point review of systems are negative. Physical Exam Physical Exam: General: no acute distress and stated age Head: normocephalic, no masses, lesions, tenderness or abnormalities Eyes: conjunctiva are pink and non-injected, sclera clear Neck: supple, no adenopathy, no bruits, normal jugular venous pulse, no hepatojugular reflux Chest: normal shape and normal respiratory effort Lungs: clear to auscultation and percussion Cardiac Exam: - regular rate & rhythm, no murmurs gallops or rubs - normal S1, normal S2 Pulses: 2(+) throughout Abdomen: abdomen soft, non-tender, no abnormal masses and no hepatosplenomegaly Musculoskeletal: no gait disturbance, no joint inflammation, no deforming arthritis Extremities: no edema and no cyanosis Neuro: grossly normal exam Results & Data ([facility]) Vital Signs (Past 12 Hours) Vital Signs Temp Pulse Pulse Resp BP BP Pulse Ox 04/03/21 11:40 36.5 C 89 79 17 131/77 131/77 97 04/03/21 10:57 36.5 C 89 17 131/77 97 04/03/21 07:13 37.0 C 72 17 111/71 96 04/03/21 04:23 36.8 C 79 18 133/75 95 Laboratory Results Laboratory Results - last 24 hr 04/02/21 04/02/21 04/02/21 13:20 13:55 16:13 WBC RBC Hgb Hct MCV MCH MCHC RDW Std Deviation RDW Coeff of Alex Plt Count MPV APTT 47.8 H* PTT Ratio 1.8 Activ Coag Time Kaolin 273 H Sodium Potassium Chloride Carbon Dioxide Anion Gap BUN Creatinine Est Cr Clr Drug Dosing Est GFR ( Amer) Est GFR (Non-Af Amer) BUN/Creatinine Ratio Glucose Calcium Phosphorus Magnesium Troponin I 9.170 H* 04/02/21 04/03/21 04/03/21 18:09 06:22 06:22 WBC 10.79 RBC 4.45 L Hgb 13.1 L Hct 39.2 L MCV 88.1 MCH 29.4 MCHC 33.4 RDW Std Deviation 43.0 RDW Coeff of Alex 13.3 Plt Count 178 MPV 13.2 H APTT PTT Ratio Activ Coag Time Kaolin Sodium 140 Potassium 3.8 Chloride 111 H Carbon Dioxide 24 Anion Gap 5.0 BUN 12 Creatinine 0.84 D Est Cr Clr Drug Dosing 78.2 Est GFR ( Amer) 102.8 Est GFR (Non-Af Amer) 88.7 BUN/Creatinine Ratio 14.7 Glucose 104 H Calcium 8.6 Phosphorus 3.0 Magnesium 2.0 Troponin I 80.500 H* 50.400 H* Medications Administered Current Inpatient Medications Acetaminophen (Acetaminophen 325 Mg Tab) 650 mg PO Q4H PRN PRN Reason: Pain or Fever Stop: 05/02/21 08:29 Last Admin: 04/02/21 11:03 Dose: 650 mg Documented by: Aspirin (Aspirin 81 Mg Ectab) [address] [facility] Stop: 05/02/21 16:59 Last Admin: 04/03/21 08:04 Dose: 81 mg Documented by: Carvedilol (Carvedilol 12.5 Mg Tab) 12.5 mg PO BID COUNTS INCLUDE 234 BEDS AT THE [facility] Stop: 05/03/21 11:29 Clopidogrel Bisulfate (Clopidogrel Bisulfate 75 Mg Tab) [address] [facility] Stop: 05/03/21 08:59 Last Admin: 04/03/21 08:04 Dose: 75 mg Documented by: Pantoprazole Sodium 40 mg/ (Syringe) 10 mls @ 5 mls/min IV DAILY@1100 COUNTS INCLUDE 234 BEDS AT THE [facility] Stop: 05/03/21 10:59 Morphine Sulfate (Morphine Sulfate 2 Mg/Ml Carp) 2 mg IV Q4H PRN PRN Reason: Pain Stop: 04/16/21 10:38 Last Admin: 04/02/21 11:03 Dose: 2 mg Documented by: Nitroglycerin (Nitroglycerin 0.1 Mg/Hr Patch) 0.1 patch TD QAM COUNTS INCLUDE 234 BEDS AT THE [facility] Stop: 05/02/21 12:14 Last Admin: 04/03/21 08:03 Dose: Not Given Documented by: Oxycodone HCl (Oxycodone Hcl Ir 5 Mg Tab (Immediate Release)) 5 mg PO Q4H PRN PRN Reason: Pain Stop: 04/16/21 12:08
--- NOTE | 2021-04-03 12:08 | Discharge Summary ---
Date of Service April 03, 2021 Admission HPI Per Admitting Provider 71-year-old male, with history of CAD status post CABG, chronic ischemic heart disease, right bundle branch block, hyperlipidemia (not tolerant to statins), MS, polyneuropathy, and osteoarthritis, who presents with chest pain. Patient reports having chest pain in the middle of the night, for past 3 days. He usually wakes up around 2 or 3 AM, with left-sided chest pain that radiates to both of his arms left more than right. He reports pain to be sometimes as pressure sometimes sharp. Reports that it usually lasts quite a long time, even about 2 hours before it gets better. He also says he is able to do simple stretching exercises and at that time he is not really bothered by chest pain. He takes stairs but very slowly due to his MS. And so he does not notice much chest pain with activity. He does notice it more when he lays down. This morning pain was bothering him more than usual and therefore he decided to be evaluated in emergency room. He does not recall being short of breath, or diaphoretic, however he noticed pain to radiate to his arms and jaw, mostly left arm. He also reported headache and eye pain associated with chest pain. In the ED, troponin was found to be elevated at 3.45, and EKG significant with ST depressions in anterior leads. Patient received aspirin 324 mg in the ED, as well as sublingual nitro, which helped with chest pain. ED provider contacted Dr. El, cardiology, who recommended to treat as an NSTEMI. Patient started on IV heparin and IV nitro. Admission Exam Per Admitting Provider Constitutional: WD/WN, vitals as above Eyes: PERRL, conjunctivae normal, anicteric sclerae ENMT: external ear and nose normal, oropharynx normal Neck: trachea midline, no thyromegaly Respiratory: normal respiratory effort, lungs clear to auscultation (no wheezing, rhonchi, crackles) Cardiovascular: RRR, no murmur, no edema Chest (Breasts): Chest: normal inspection of chest Gastrointestinal (Abdomen): normal bowel sounds, soft, nontender, no hepatosplenomegaly Musculoskeletal: Head/Neck/Chest: normocephalic, head atraumatic and neck supple Extremities: + abnormal strength (pt moves extremities, has brace on RLE (chronic d/t MS)) Skin: no rashes, warm and dry Neurologic: awake (Alert oriented answering questions appropriately,no facial asymmetry) Psychiatric: A+Ox3, euthymic affect Genitourinary: no CVA tenderness Lymphatic: no lymphedema Principal Diagnosis NSTEMI Chest pain, elevated troponin History of CAD, status post CABG Multiple sclerosis Discharge Exam Constitutional: WD/WN, vitals as above Eyes: PERRL, EOMI, conjunctivae normal, anicteric sclerae ENMT: external ear and nose normal, oropharynx normal Neck: supple Respiratory: normal respiratory effort, lungs clear to auscultation (no wheezing, rhonchi, crackles) Cardiovascular: RRR, no murmur, no edema Chest (Breasts): Chest: normal inspection of chest Gastrointestinal (Abdomen): normal bowel sounds, soft, nontender,nondistended Musculoskeletal: Head/Neck/Chest: normocephalic, head atraumatic and neck supple Extremities: pt moves extremities,uses brace on RLE (chronic d/t MS)) Skin: no rashes, warm and dry Neurologic: awake and Alert oriented answering questions appropriately,no facial asymmetry, moves extremities Psychiatric: A+Ox3, euthymic affect Genitourinary: no CVA tenderness Lymphatic: no lymphedema Discharge Data Allergies Allergy/AdvReac Type Severity Reaction Status Date / Time indomethacin Allergy Intermediate stomach Verified 04/02/21 07:36 pain NSAIDS (Non-Steroidal Allergy Intermediate STOMACH Verified 04/02/21 07:36 Anti-Inflamma PAINS Consultations 04/02/21 07:30 ED Decision to Admit Stat 04/02/21 08:30 Consult Cardiology Routine 04/02/21 16:57 Consult Cardiac Rehabilitation Routine Procedures Performed Operation Date: 04/02/21 15:15 Actual Procedures p Cineradiography w/Routine Exam - Owen El MD Ordered Studies 04/02/21 15:00 CL Cath Imgs for PACS use only Stat Hospital Course (1) NSTEMI (non-ST elevated myocardial infarction): History of CAD, status post CABG History of chronic ischemic heart disease and hyperlipidemia, not tolerant to statin History of right bundle branch block Patient presents with left-sided chest pain, radiation to left arm Troponin 3.45 ST depressions in anterior leads, RBBB In ED given aspirin 324 mg, sublingual nitro x2 with some improvement in chest pain started on IV heparin and IV nitro drip ED provider discussed with Dr. El, initially recommended medical management Echo obtained - study was technically limited. LV is normal in size. There is moderate to severe inferior wall hypokinesis. EF 50 to 55%. RV systolic function is normal. LA size is normal. RA size is normal. There is moderate mitral regurg. Cardiology consulted Second troponin elevated at 9, pt w/ persistent chest pain /10 despite being on IV nitro and IV heparin repeat EKG obtained, cardiology notified and heart alert called Pt is now s/p PCI of distal circumflex (w/ Dr. El) Summary: 1. Acute 100% distal circumflex occlusion 2. Chronic [place] vessel coronary artery disease -70% diffuse mid LAD. 100% proximal D2 chronic total occlusion 40% earlymid RCA 3. Widely patent SANTILLAN to LAD. Distal LAD after anastomosis provides left to left collaterals to D2. 4. Normal intracardiac filling pressure. 5. Successful PCI of distal circumflex with single drug-eluting stent (3.0 x 18 mm Delroy; postdilated with 3.5 NC). Recommendations: To PCU for continued monitoring Loaded with clopidogrel 600 mg in [place] Continue dual-antiplatelet therapy for at least 1 year Consult cardiac Rehab At home pt usually takes Coreg 04/03/2020 Patient clinically much improved, denies any more chest pain, also denies shortness of breath, dizziness lightheadedness. He is also eager to be discharged home. We will discharge on Coreg 12.5 mg twice daily. Will sent Rx for Plavix an ASA. Patient will need to follow-up with PCP and cardiology as outpatient History of MS, polyneuropathy -Patient on medical marijuana, gabapentin -Resume home medications as appropriate Total Time Total Time Spent Total Time Spent (In Minutes): 40 Discharge Plan Discharge Items Patient Disposition: Home - Self-Care Reason For Visit: CHEST PAIN, ELEV.TROP Discharge Diagnosis: NSTEMI Chest pain, elevated troponin History of CAD, status post CABG Multiple sclerosis Activity: Per Instructions section Non-emergency contact: Primary Care Provider and Instrumentation Supervisor Call non-emergency contact if: you have any medication questions and your symptoms worsen Follow-up/Referrals: Bryn Recinos DO [Primary Care Provider] - Diet: Heart Healthy Addtl Attending Provider Instructions: Follow-up with your primary care doctor and nursing clinical director within 1 to 2 weeks. You will be contacted about your appointments. It is crucial that you follow-up with your healthcare providers, as you will need important medication prescriptions (for example, Plavix) for several months. Take aspirin and Plavix daily, until told otherwise by your nursing clinical director. Also continue taking your carvedilol/Coreg as prescribed, 12.5 mg twice daily. Pending Studies at Discharge: No Stand-Alone Forms: My [facility], Smoking Cessation Medications and DC Order Prescriptions: New clopidogrel 75 mg Tablet 75 mg PO QAM Qty: 30 RF: 0 aspirin 81 mg Tablet,Delayed Release (Dr/Ec) 81 mg PO QAM Qty: 30 RF: 0 carvedilol 12.5 mg Tablet 12.5 mg PO BID 30 Days Qty: 60 RF: 0 Continued multivitamin Tablet 1 tab PO 3XWK RF: 0 gabapentin 400 mg Capsule 200 mg PO HS RF: 0 cholecalciferol (vitamin D3) [Vitamin D3] 1,000 unit Tablet 1,000 unit PO DAILY RF: 0 omega 0-mzj-irv-fish oil [Fish Oil] 1,000 mg (120 mg-180 mg) Capsule 1 cap PO 3XWK RF: 0 turmeric root extract 500 mg Capsule 500 mg PO DAILY RF: 0 Cbd Oil 1 dose PO UD PRN (Reason: Pain) RF: 0 Medical Marijuana 1 dose PO HS RF: 0 Vitamin C 1,000 mg Tablet Extended Release 1,000 mg PO DAILY RF: 0 calcium gluconate 50 mg calcium Tablet 50 mg PO DAILY RF: 0 Changed carvedilol 12.5 mg Tablet 12.5 mg PO BID Qty: 0 RF: 0 Discontinued ibuprofen [Advil] 200 mg Tablet 200 mg PO Q6H PRN (Reason: Pain) RF: 0 Discharge Orders: Discharge Order (Routine); Ordered 04/03/21 Ordered By: Chris Raymond Admission Data Admit Date/Time: 04/02/21 08:30 Attending Provider: Chris Raymond Admit Provider: Chris Raymond Primary Care Provider: Bryn Recinos Other Providers: Moiz Guerrero ; Jese Mercado Other Interventions: Discharge Summary Assessment (RN) Last Done: 04/03/21 11:40
== END 2021-04-03 13:18 | disposition home or self-care (01) | DRG 247 ==
LOC: ED 06:08 → 2S 08:30